=== PATIENT | female | born 1970 | race Caucasian/White ===

== ENCOUNTER 2021-01-01 19:03 | Emergency (ER) | payer OTHER, SELFPAY ==
--- NOTE | ~2021-01-01 | XR_ITS ---
XR chest 2V DATE: 01/01/2021 19:40 INDICATION: Left chest pain radiating to left arm. Numbness, dizziness. Hypertension. TECHNIQUE: PA and lateral views COMPARISON: None FINDINGS: Normal heart size. No hilar or mediastinal enlargement. No pulmonary infiltrate or consolid ation, pleural effusion or pulmonary vascular congestion or pneumothorax. Mild dextro scoliosis of the thoracolumbar spine. IMPRESSION: No active cardiopulmonary disease Reviewed, dictated and finalized at location A.
--- NOTE | 2021-01-01 19:06 | ECG_ITS ---
Measurements Intervals [place] Rate: 95 P: 30 FL: 150 QRS: 43 QRSD: 98 T: 47 QT: 329 QTc: 414 Interpretive Statements SINUS RHYTHM NONSPECIFIC ST & T-WAVE ABNORMALITY- INFERIOR LEADS BASELINE ARTIFACT- I, III BORDERLINE ECG Electronically Signed On 01-01-2021 19:52:36 CDT by Irvin Mackey D.O.
[2021-01-01 19:19] VITALS: BP 181/111; PULSE 88; RESP 18; TEMP 36.1; O2SAT 100
[2021-01-01 19:35] LABS: Basophils Percent Auto 0.4 % (0.2-1.2); Eosinophils Percent Auto 0.5 % (0-4.4); Hematocrit 42.1 % (37.0-47.0); Hemoglobin 13.9 g/dL (12.0-15.0); Immature Granulocyte Absolute 0.01 K/mm3 (0.00-0.031); Immature Granulocyte Percent A 0.2 % (0-0.5); Lymphocytes Absolute Auto 2.41 K/mm3 (0.9-3.2); Lymphocytes Percent Auto 42.3 % (18.3-44.2); Mean Corpuscular Hemoglobin 33.6 pg (26-34); Mean Corpuscular Volume 101.7 fl (80-100); Mean Platelet Volume 9.4 fl (7.4-10.4); Monocytes Absolute Auto 0.5 K/mm3 (0.1-0.6); Monocytes Percent Auto 8.4 % (2.6-8.5); Neutrophils Absolute Auto 2.8 K/mm3 (1.3-6.7); Neutrophils Percent Auto 48.2 % (45.5-73.1); Platelet Count Result 325 k/mm3 (150-375); Red Blood Count 4.14 M/mm3 (4.2-5.4); Red Cell Distribution Width 12.1 % (11.5-14.5); White Blood Count 5.7 K/mm3 (4.5-10.0)
[2021-01-01 19:48] LABS: Anion Gap 11 mmol/L (8-16); Blood Urea Nitrogen 5 mg/dL (7-17); Calcium 9.9 mg/dL (8.4-10.2); Carbon Dioxide 25 mmol/L (22-30); Chloride 105 mmol/L (98-107); Estimated CRCL calculation 78 ml/min; Estimated Glomerular Filt Rate > 60; Glucose 104 mg/dL (65-110); Potassium 3.3 mmol/L (3.4-5.0); Sodium 141 mmol/L (137-145)
[2021-01-01 19:52] LABS: INR 0.8; Partial Thromboplastin Time 25.3 SECONDS (22.3-36.8); Prothrombin Time 11.3 Seconds (11.1-14.7)
[2021-01-01 20:00] LABS: Troponin I < 0.012 ng/mL (0.000-0.034)
[2021-01-01 21:17] VITALS: PULSE 83
[2021-01-01 21:20] VITALS: BP 157/101; PULSE 95; RESP 18; O2SAT 100
[2021-01-01] MEDS: ASPIRIN 81 MG CHEWABLE TABLET 324 MG PO (21:29)
--- NOTE | 2021-01-01 21:32 | ED.CHESTPAIN ---
HPI - Chest Pain General Chief Complaint: Chest Pain Stated Complaint: CP arm numbness,palpitations Time Seen by Provider: 01/01/21 21:31 Source: patient Mode of arrival: ambulatory Limitations: no limitations History of Present Illness HPI narrative: Patient is a 50-year-old female with a history of borderline hypertension, gastric bypass, who presents for evaluation of intermittent chest pain, left arm pain. At the time of assessment, patient is completely asymptomatic. She states that she has had pain over the past month which has been intermittent in nature. Patient reports pain that radiates down both sides of her neck into her left shoulder, and left chest. Moving her neck to the right does exacerbate the pain in her left shoulder. Patient reports at times the pain is worse with movement or heavy lifting. She denies any inciting injury. She denies fever, chills, current chest pain or shortness of breath. No palpitations. No weakness or numbness in the left upper extremity. Patient has no vision changes or severe headache. No difficulty with ambulation. Patient states that symptoms seem to come and go and she currently does not have any pain. She states that she is worried she was having a stroke because a sister recently had a stroke. Patient does not smoke. No recent long car or air travel. No history of Covid. She has had her first Covid vaccination. She denies leg swelling or calf pain. No recent immobility. No history of coagulopathy. Patient does have a history of anxiety, states that she was also concerned she was having a major heart attack. She states her anxiety does play a role in her symptoms and how she is feeling. Patient has a family history of coronary artery disease. No family history of sudden cardiac in any family members. Patient has never had a stress test. She does not have a diagnosis of hypertension. No diagnosis of hyperlipidemia. Related Data Allergies Allergy/AdvReac Type Severity Reaction Status Date / Time No Known Allergies Allergy Unverified 01/01/21 21:13 Review of Systems Review of Systems: CONSTITUTIONAL: Denies fever, chills, or sweats. EYES: Denies visual changes, redness, or discharge. ENT: Denies rhinorrhea, congestion, sore throat, or otalgia. CARDIOVASCULAR: Denies current chest pain, palpitations, or edema. RESPIRATORY: Denies cough or dyspnea. GASTROINTESTINAL: Denies abdominal pain, nausea, vomiting, or diarrhea. GENITOURINARY: Denies dysuria or hematuria. SKIN: Denies rash or itching. MUSCULOSKELETAL: Denies back pain, joint pain, or myalgia. Reports intermittent neck pain. NEUROLOGIC: Denies headache, numbness, or weakness. PSYCHIATRIC: Reports history of anxiety [facility] Social History Social History (Updated 01/01/21 @ 22:57 by Debby Murphy MD) Smoking status: Never smoker Alcohol intake: current Alcohol use details: rare Substance use: never Gender identity (if verbalized by the patient): Female Exam Narrative: GENERAL: Awake, alert, conversant HEAD: Normocephalic, atraumatic. EYES: PERRLA and EOMI. ENT: Nares clear, no rhinorrhea or epistaxis. Mucous membranes moist. NECK: Supple. Mild pain to palpation bilateral trapezius muscles which exactly reproduces pain. No midline cervical pain. No step-offs or deformities. CHEST: No respiratory distress, breathing even and non labored, no chest wall tenderness. HEART: Regular rate, sinus rhythm ABDOMEN:Non distended, non tender EXTREMITIES: Normal range of motion. No edema. Intact sensation over the left deltoid. Full range of motion at the left shoulder without reproduction of pain. SKIN: Warm, dry, no rash. NEURO:No focal deficits. Alert and oriented x3. Finger to nose intact bilaterally. EOMs intact without nystagmus. No facial droop/asymmetry noted bilaterally. Grimace intact. Intact sensation in face. Hearing intact bilaterally. Shoulder shrug intact. Strength 5/5 bilateral upper extremitie
[2021-01-01 22:12] VITALS: BP 152/99; PULSE 84; RESP 16; O2SAT 99
[2021-01-01 23:09] VITALS: BP 137/100; PULSE 85; RESP 20; O2SAT 100
[2021-01-02 00:01] LABS: Troponin I < 0.012 ng/mL (0.000-0.034)
== END 2021-01-01 23:12 | disposition home or self-care (01) ==
PROVIDERS: Emergency Medicine; Emergency Provider Emergency Medicine
DX: R07.89 Other chest pain (principal); M54.2 Cervicalgia; F41.9 Anxiety disorder, unspecified; Z98.84 Bariatric surgery status
CPT/HCPCS: 36415; 71046; 80048; 84484; 85025; 85610; 85730; 93005; 99284; A9270

== ENCOUNTER 2022-01-26 14:16 | Emergency (ER) | payer OTHER, SELFPAY ==
[2022-01-26] VITALS (16 sets, daily range): BP systolic 140–147; BP diastolic 97–99; PULSE 85–102; RESP 10–22; TEMP 36.6; O2SAT 99–100
--- NOTE | ~2022-01-26 | CT_ITS ---
EXAMINATION: CT brain wo con DATE: 01/26/2022 15:06 INDICATION: left side weakness . TECHNIQUE: Computed tomography (CT) of the head was performed without intravenous contrast. The mA wa s adjusted according to patient size. Iterative reconstruction technique was employed. The dose-lengt h product was 605.33 mGy-cm. COMPARISON: None FINDINGS: No acute intracranial hemorrhage or extra-axial fluid collection. No hydrocephalus, mass, or herniation. No acute ischemic infarct. Unremarkable dural venous sinus attenuation. No acute osseous abnormality. The aerated spaces are clear. IMPRESSION: No acute intracranial process. Reviewed, dictated and finalized at location K.
--- NOTE | ~2022-01-26 | XR_ITS ---
EXAMINATION: XR chest 2V Exam Date/Time: 01/26/2022 14:50 CDT HISTORY: chest pain, heart palpitations, left side weakness Comparison: 01/01/2021. RESULT: Lines, tubes, and devices: None. Lungs and pleura: Clear. Cardiomediastinal silhouette: Stable. Other: No acute osseous or upper abdominal finding. IMPRESSION: No acute cardiopulmonary process. Reviewed, dictated and finalized at location K.
--- NOTE | ~2022-01-26 | XR_ITS ---
EXAM: XR elbow LT min 3V DATE: 01/26/2022 16:12 HISTORY: GENERALIZED PAIN THROUGHOUT ARM W/ TROUBLE MOVING, NO INJURY . COMPARISON: None available. FINDINGS: Normal mineralization. No fracture or dislocation. No lytic or blastic lesion. Joint space s are maintained. No erosion or periosteal change. Soft tissues within normal limits. IMPRESSION: No acute osseous finding in the left elbow. Reviewed, dictated and finalized at location K.
--- NOTE | 2022-01-26 14:25 | ECG_ITS ---
Measurements Intervals [employer] Rate: 100 P: 31 WI: 149 QRS: 47 QRSD: 91 T: 38 QT: 319 QTc: 411 Interpretive Statements SINUS TACHYCARDIA MINIMAL NONSPECIFIC T-WAVE ABNORMALITY ABNORMAL RHYTHM ECG COMPARED TO ECG 01/01/2021 19:12:40 SINUS TACHYCARDIA NOW PRESENT T-WAVE ABNORMALITY NOW PRESENT Electronically Signed On 01-28-2022 12:47:44 CDT by Rosetta Ramirez M.D.
[2022-01-26 14:39] LABS: Basophils Percent Auto 0.4 % (0.2-1.2); Eosinophils Percent Auto 0.3 % (0-4.4); Hematocrit 44.2 % (37.0-47.0); Hemoglobin 14.7 g/dL (12.0-15.0); Immature Granulocyte Absolute 0.01 K/mm3 (0.00-0.031); Immature Granulocyte Percent A 0.1 % (0-0.5); Lymphocytes Absolute Auto 1.74 K/mm3 (0.9-3.2); Mean Corpuscular HGB Conc 33.3 g/dl (32-36); Mean Corpuscular Hemoglobin 33.6 pg (26-34); Mean Corpuscular Volume 101.1 fl (80-100); Mean Platelet Volume 9.5 fl (7.4-10.4); Monocytes Absolute Auto 0.4 K/mm3 (0.1-0.6); Monocytes Percent Auto 5.8 % (2.6-8.5); Neutrophils Absolute Auto 4.5 K/mm3 (1.3-6.7); Neutrophils Percent Auto 67.4 % (45.5-73.1); Platelet Count Result 347 k/mm3 (150-375); Red Blood Count 4.37 M/mm3 (4.2-5.4); Red Cell Distribution Width 12.1 % (11.5-14.5); White Blood Count 6.7 K/mm3 (4.5-10.0)
--- NOTE | 2022-01-26 14:45 | ED.GENADULT ---
HPI - General Adult General Chief complaint: Chest Pain Stated complaint: Palpitations Time Seen by Provider: 01/26/22 14:28 Source: patient and RN notes reviewed Mode of arrival: ambulatory Limitations: no limitations History of Present Illness HPI narrative: This is a 51 year old female who presents for evaluation of multiple complaints. She states she has felt off for at least 1 week. She feels like she is having palpitations in her left chest and left elbow. She also reports pins and needles in both feet and both hands for 1 week. She feels like something is wrong with left side of body . She reports weakness and she feels like she is going to fall. She also reports dizziness. She told triage that she was having chest pain and back pain. She denies chest pain to me but she reports feeling of heart racing to left chest. Her states patient drinks heavily and he thinks this may be related to her problems. PAtient told me she only drank 1 glass of wine per night. Her states she drinks vodka and drinks more than what she is stating. He also state this is patient's second visit with similar symptoms. Related Data Allergies Allergy/AdvReac Type Severity Reaction Status Date / Time No Known Allergies Allergy Verified 01/26/22 14:32 Review of Systems Review of Systems: All systems reviewed & are unremarkable except as noted in HPI and below Constitutional: Constitutional: Denies chills, Reports fatigue and Denies fever(s) ENT: Reports dizziness, Denies nasal congestion and Denies sore throat Cardiovascular: Cardiovascular: Denies chest pain, Reports rapid heart rate and Denies radiating jaw, neck or arm pain Respiratory: Respiratory: Denies chest congestion, Denies cough and Denies dyspnea Gastrointestinal: Gastrointestinal: Denies abdominal pain, Reports nausea and Denies vomiting Neurologic: Reports dizziness, Reports numbness (in her feet) and Reports weakness PMFSH Social History Social History (Updated 01/26/22 @ 14:51 by Mari Gregorio MD) Smoking status: Never smoker Alcohol intake: current Alcohol use details: drinks daily Substance use: never Gender identity (if verbalized by the patient): Female Exam Narrative: GENERAL: Well-appearing, well-nourished, and in no acute distress. HEAD: Normocephalic, atraumatic EYES: PERRLA and EOMI, conjunctiva clear without discharge EARS: TM's clear bilaterally without erythema or dullness NOSE: Nares clear, no rhinorrhea or epistaxis THROAT:Mucous membranes moist, Oropharynx normal without erythema, exudate, peritonsillar swelling or fluctuance NECK: Supple, without lymphadenopathy or mass RESPIRATORY: No respiratory distress, Airway patent, Respirations non-labored, Clear to auscultation without rales, rhonchi or wheeze HEART: Regular rate and rhythm. No murmur heard. Normal peripheral pulses. ABDOMEN: Soft, nontender, nondistended, normal active bowel sounds. No masses. No rebound or guarding, No organomegaly. EXTREMITIES: No edema, normal strength with full range of motion. SKIN: Warm, dry, normal color without rash NEURO: Alert and oriented x3. CN 2-12 grossly intact. No focal deficits. PSYCH: Normal mood and affect. Neuro: General: patient oriented x3, moves all extremities, no focal motor deficits and CN's II-XI intact bilaterally Cranial nerves: Yes CN's II-XII intact bilaterally and Yes Nystagmus not present Speech: normal speech Motor exam (neuro): 5/5 motor strength present throughout Sensory Exam: normal sensation Coordination: [id number] test normal and [id number]-[id number] test normal Extrem: General: normal to inspection, no clubbing, cyanosis or edema and no pedal edema Psych: Mental Status: mental status grossly normal Course Reevaluation(s) Reevaluation #1: I discussed with patient labs are unremarkable. She was evaluated for similar symptoms 1 year ago. This symptoms may be related to anxiety an
[2022-01-26 14:50] LABS: Prothrombin Time 12.5 Seconds (11.1-14.7)
[2022-01-26 14:51] LABS: Partial Thromboplastin Time 27.2 SECONDS (22.3-36.8)
[2022-01-26 15:07] LABS: Alanine Aminotransferase 16 U/L (6-35); Alkaline Phosphatase 42 U/L (38-126); Anion Gap 10 mmol/L (8-16); Aspartate Amino Transferase 21 U/L (14-36); Bilirubin,Total 0.3 mg/dL (0.2-1.3); Blood Urea Nitrogen 6 mg/dL (7-17); Calcium 9.7 mg/dL (8.4-10.2); Carbon Dioxide 28 mmol/L (22-30); Chloride 102 mmol/L (98-107); Estimated CRCL calculation 101 ml/min; Estimated Glomerular Filt Rate > 60; Glucose 143 mg/dL (65-110); Lipase 88 U/L (23-300); Potassium 3.8 mmol/L (3.4-5.0); Sodium 140 mmol/L (137-145)
[2022-01-26] MEDS: LORazepam (*CRX) 1 MG TABLET PO (15:13)
[2022-01-26] MEDS: LACTATED RINGERS 1,000 ML 999 ML IV CONT (15:13)
[2022-01-26 15:18] LABS: Troponin I < 0.012 ng/mL (0.000-0.034)
[2022-01-26 16:14] LABS: Ammonia < 9 umol/L (9-30); Magnesium 2.3 mg/dL (1.6-2.3)
[2022-01-26 16:15] LABS: Ethanol < 10 mg/dL (<10)
== END 2022-01-26 17:48 | disposition home or self-care (01) ==
PROVIDERS: Emergency Medicine; Emergency Provider General Practice
DX: R00.2 Palpitations (principal); R20.2 Paresthesia of skin
CPT/HCPCS: 36415; 70450; 71046; 73080; 80053; 80307; 82140; 82607; 82746; 83690; 83735; 84443; 84484; 85025; 85380; 85610; 85730; 93005; 96360; 99284; A9270; J7120

== ENCOUNTER 2022-04-25 14:43 | Outpatient (CLI) | payer BC, SELFPAY ==
--- NOTE | ~2022-04-25 | MM_ITS ---
EXAMINATION: MM scrn nadeem implant BI w any HISTORY: Screening mammogram TECHNIQUE: Craniocaudal and mediolateral oblique 3-D tomosynthesis images with implant displacement a nd synthetic 2-D images were generated. Craniocaudal and mediolateral oblique views of the breasts wi thout implant displacement were obtained using full field digital mammography. CAD analysis was submi tted and interpreted. COMPARISON: No prior mammogram is available for comparison at this institution. BREAST PARENCHYMAL COMPOSITION: There are scattered areas of fibroglandular density. FINDINGS: There is no evidence of suspicious mass, calcification, or architectural distortion to sugg est malignancy in either breast. IMPRESSION: 1. No mammographic evidence of malignancy. 2. Recommend routine screening mammography in one year. BI-RADS Category 1: Negative Reviewed, dictated and finalized at location A. [employer]
== END 2022-04-25 14:44 | disposition home or self-care (01) ==
LOC: ANHIMG 14:54
PROVIDERS: PCP Family Medicine; Visit Provider Physician Assistant Medical
DX: Z12.31 Encounter for screening mammogram for malignant neoplasm of breast (principal)
CPT/HCPCS: 77063; 77067

== ENCOUNTER 2022-05-08 11:21 | Outpatient (CLI) | payer BC, SELFPAY ==
[2022-05-08 12:09] LABS: Basophils Percent Auto 0.6 % (0.2-1.2); Eosinophils Absolute Auto 0.1 K/mm3 (0-0.3); Eosinophils Percent Auto 2.1 % (0-4.4); Hematocrit 41.5 % (37.0-47.0); Hemoglobin 13.6 g/dL (12.0-15.0); Immature Granulocyte Absolute 0.01 K/mm3 (0.00-0.031); Immature Granulocyte Percent A 0.2 % (0-0.5); Lymphocytes Absolute Auto 1.79 K/mm3 (0.9-3.2); Lymphocytes Percent Auto 37.8 % (18.3-44.2); Mean Corpuscular HGB Conc 32.8 g/dl (32-36); Mean Corpuscular Hemoglobin 31.9 pg (26-34); Mean Corpuscular Volume 97.2 fl (80-100); Mean Platelet Volume 9.5 fl (7.4-10.4); Monocytes Absolute Auto 0.4 K/mm3 (0.1-0.6); Monocytes Percent Auto 8.2 % (2.6-8.5); Neutrophils Absolute Auto 2.4 K/mm3 (1.3-6.7); Neutrophils Percent Auto 51.1 % (45.5-73.1); Platelet Count Result 330 k/mm3 (150-375); Red Blood Count 4.27 M/mm3 (4.2-5.4); Red Cell Distribution Width 12.6 % (11.5-14.5); White Blood Count 4.7 K/mm3 (4.5-10.0)
== END 2022-05-08 11:22 | disposition home or self-care (01) ==
PROVIDERS: PCP Family Medicine; Visit Provider Obstetrics & Gynecology
DX: D21.9 Benign neoplasm of connective and other soft tissue, unspecified (principal)
CPT/HCPCS: 36415; 85025; 86850; 86900; 86901

== ENCOUNTER 2022-05-09 01:16 | Day surgery (SDC) | payer BC, SELFPAY ==
[2022-05-05 14:37] VITALS: BMI 27.4
--- NOTE | 2022-05-05 14:42 | PC.NURSE ---
Report to the Outpatient Waiting Room, entrance under the green pavilion located off [facility], at time 9:30 on date 05/09/22. Planned Procedure Time: 11:30. Time changes happen often and if your time is changed the preop area will call you the afternoon before. - You and your visitor will be asked to self-screen and do not enter if you have any COVID symptoms. - Only one visitor is requested with a max of two and NO children visitors are allowed at this time. - The patient visitor may be requested to leave or wait in car when not with patient due to distancing restrictions. - A mask is optional within the hospital. Patients may have clear liquids (water, carbonated beverages, clear teas, apple juice) until 3 hours prior to surgery with a maximum of 20 ounces. - No food from midnight until time of surgery Take the following medications with a SIP of water the morning of surgery: ZOLOFT, XANAX & TYLENOL IF NEEDED Medications to discontinue per physician: N/A Date to take last dose: N/A Please no make-up, nail tuvaluan, hairspray, perfume, deodorant, or body powder the day of surgery. No jewelry (including any body piercings) or valuables the day of surgery, leave them at home. Please take a shower or bath the night before, or the morning of, surgery with an antibacterial soap. Wear comfortable, loose fitting clothing. - Jewelry must be removed prior to entering the operating room. Rings and piercings that are not removed may be cut off. - The hospital will not accept responsibility for valuables. - Please leave all valuables, including medications, at home the day of surgery. If you are going home after surgery, a licensed dedicated driver must drive you home. - NO public transportation without another adult if you receive anesthesia. - We recommend that an adult stay with you for 24 hours following discharge. - We also recommend that you do not drive, make important decision, drink alcoholic beverages, or take any drugs that were not prescribed by your health care provider for at least 24 hours after your discharge time. Follow any additional instructions given to you from your surgeon. If you or anyone in your household have experienced Covid symptoms in the past week, please notify your surgeon or the nurse liaison at the phone number below for possible testing. Telephone instructions given to PT - ZACHERY CUEVAS and asked if any additional questions and then verbalized understanding. Patient advised to call surgeon office or pre surgery nurse liaison [phone] if any additional questions.
--- NOTE | 2022-05-07 06:36 | PM.IMHP ---
H&P: HPI History of Present Illness Date/Time: 05/07/22 06:36 Chief Complaint: failed uterine ablation with pain and fibroids and irregular bleeding Narrative: this is a 52-year-old female with known uterine fibroids and severe pelvic pain on the right. She will undergo robotic total vaginal hysterectomy with right salpingo-oophorectomy and left salpingectomy. Risks and benefits reviewed including not exclusive of , aspiration pneumonia bleeding, transfusion perforation injury to bowel, bladder, ureters, other internal organs with need for open laparotomy. She received the ACOG handout entitled hysterectomy as well as the [facility] handout. She had all questions answered and asked to proceed PMFSH Past Medical History Medical History BMI 27.0-27.9,adult Irritable bowel Surgical History Surgical History H/O abdominoplasty H/O gastric bypass Family History Family History Other Cerebrovascular accident Depression Heart disease Hypertension Social History Social History Smoking status: Never smoker Alcohol intake: current Alcohol use details: 4/MONTH Substance use: never Substance use type: does not use Lack of Transportation: No Lack of Food: Never True Current Housing: I Have Housing Concerned About Future Housing: No Difficulty Paying Gas/Electric Bills: No Difficulty Paying for Meds: No Currently Unemployed: No Education: High School Diploma/GED Gender identity (if verbalized by the patient): Female Spiritual care concerns: No Meds Home Medications and Allergies Home Medications Medication Instructions Recorded Confirmed Type acetaminophen 500 mg capsule 500 mg PO Q6H PRN fever or pain 01/01/21 05/05/22 Rx #30 caps ibuprofen 400 mg tablet 400 mg PO TID PRN fever or pain 10 01/01/21 05/05/22 Rx days #30 tabs alprazolam 0.25 mg tablet (Xanax) 0.25 mg PO BID PRN anxiety #10 tabs 04/23/22 05/05/22 Rx fluticasone propionate 50 1 spray intranasal DAILY #18.2 mL 04/23/22 05/05/22 Rx mcg/actuation nasal spray,suspension (Flonase Allergy Relief) loratadine-pseudoephedrine ER 10 1 tablet PO .QD 04/23/22 05/05/22 History mg-240 mg tablet,extended [id number] (Claritin-D 24 Hour) sertraline 25 mg tablet (Zoloft) 25 mg PO DAILY #30 tabs 04/23/22 05/05/22 Rx Allergies Allergy/AdvReac Type Severity Reaction Status Date / Time No Known Allergies Allergy Verified 05/05/22 14:36 Exam Const: General: cooperative, healthy appearing and comfortable Nutritional Appearance: average body habitus Orientation/consciousness: oriented to person, oriented to place and oriented to time HENMT: Head: normal to inspection Neck: Neck: normal visual inspection Resp: Effort & Inspection: normal respiratory effort Cardio: Rate: regular rate Rhythm: regular rhythm Heart sounds: S1 normal heart sound present and S2 normal heart sound present GI: Inspection: normal to inspection Auscultation: normal bowel sounds : Speculum Exam - Vagina: normal appearance of the vagina Speculum Exam - Cervix: normal appearance of the cervix Bimanual exam- vagina & uterus: enlarged Bimanual Exam- Adnexa, other: normal adnexae Assessment and Plan Assessment and plan (1) Fibroids: Code(s): D21.9 - Benign neoplasm of connective and other soft tissue, unspecified Status: Acute (2) Pelvic pain: Code(s): R10.2 - Pelvic and perineal pain Status: Acute (3) Bleeding: Code(s): R58 - Hemorrhage, not elsewhere classified Status: Acute Plan robotic total vaginal hysterectomy and an right salpingo-oophorectomy with left salpingectomy
[2022-05-09] VITALS (10 sets, daily range): BP systolic 115–139; BP diastolic 70–92; PULSE 55–92; RESP 10–20; TEMP 36.1–36.8; O2SAT 95–100
--- NOTE | 2022-05-09 07:05 | WPDHPUPDATE1 ---
History and Physical Update Update Date/Time: 05/09/22 07:05 History and Physical has been reviewed, including an updated exam of the patient. There are NO changes in the patient's condition. Risks, benefits, and alternatives have been discussed and questions answered. Patient agrees to proceed with procedure.
[2022-05-09] MEDS: LACTATED RINGERS 1,000 ML 30 ML IV CONT ×2 (08:35→11:08)
--- NOTE | 2022-05-09 08:35 | WPDANESEPPF ---
Anes - Initial Pre Proc Eval Procedure: Operation Date: 05/09/22 09:30 Proposed Procedures p Robotic Assisted Total Vaginal Hysterectomy, Right Salpingo-oophorectomy, Left Salpingectomy - Mike Ha MD Date/Time: 05/09/22 08:35 Surgeon: Mike Ha MD Pre Op Diagnosis: Fail Uterine Abla,Pain,Fibroids,Enl Uterus,Bleedin Patient Data Age: 52 Gender: F Height: 1.68 m Weight: 75.3 kg Last Vital Signs Temp 36.4 C L 05/09/22 08:05 Pulse 92 05/09/22 08:05 Resp 20 05/09/22 08:05 BP 126/92 H 05/09/22 08:05 Pulse Ox 100 05/09/22 08:05 O2 Del Method Room Air 05/09/22 08:05 Allergies Allergy/AdvReac Type Severity Reaction Status Date / Time No Known Allergies Allergy Verified 05/09/22 08:03 Home Medications Medication Instructions Recorded Confirmed Type ibuprofen 400 mg tablet 400 mg PO TID PRN fever or pain 10 01/01/21 05/09/22 Rx days #30 tabs alprazolam 0.25 mg tablet (Xanax) 0.25 mg PO BID PRN anxiety #10 tabs 04/23/22 05/09/22 Rx fluticasone propionate 50 1 spray intranasal DAILY #18.2 mL 04/23/22 05/09/22 Rx mcg/actuation nasal spray,suspension (Flonase Allergy Relief) loratadine-pseudoephedrine ER 10 1 tablet PO .QD 04/23/22 05/09/22 History mg-240 mg tablet,extended [id number] (Claritin-D 24 Hour) sertraline 25 mg tablet (Zoloft) 25 mg PO DAILY #30 tabs 04/23/22 05/09/22 Rx acetaminophen 500 mg capsule 1,000 mg PO Q6H PRN fever or pain 05/09/22 05/09/22 History hydrocodone 5 mg-acetaminophen 325 1 tablet PO Q4H PRN pain #30 tabs 05/09/22 Rx mg tablet Patient hx anesthesia problems: none Family hx anesthesia problems: none Results Review: All pre-operative results and documents have been reviewed as part of the pre-operative evaluation. [facility] Past Medical History Medical History BMI 27.0-27.9,adult Irritable bowel Surgical History Surgical History H/O abdominoplasty H/O gastric bypass Family History Family History Other Cerebrovascular accident Depression Heart disease Hypertension Social History Social History Smoking status: Never smoker Alcohol intake: current Alcohol use details: 4/MONTH Substance use: never Substance use type: does not use Lack of Transportation: No Lack of Food: Never True Current Housing: I Have Housing Concerned About Future Housing: No Difficulty Paying Gas/Electric Bills: No Difficulty Paying for Meds: No Currently Unemployed: No Education: High School Diploma/GED Living arrangements: with family Gender identity (if verbalized by the patient): Female Spiritual care concerns: No Anes - Eval Final PreProcedure Day of Procedure 05/09/22 08:35 Patient weight: overweight Heart: regular rate and rhythm Lungs: clear to auscultation Airway: Mallampati scale class II Neurological: alert and oriented Last oral intake: >/= 8 hours ASA classification: II Emergent: no Anesthetic plan: proceed Anesthesia type and monitoring: general ETT and standard monitoring Results Review: All pre-operative results and documents have been reviewed as part of the pre-operative evaluation. Informed Consent: The patient's anesthetic plan and its attendant risks and benefits were discussed with the patient/family/POA. Questions were solicited and answers provided to the satisfaction of the patient/family/POA.
[2022-05-09] MEDS: KETOROLAC 15 MG/ML VIAL (*BKC) IV PUSH (08:38)
[2022-05-09] MEDS: ceFAZolin 2 GM/D5W 50 ML 2 GM/50 ML BAG IVPB (09:32)
--- NOTE | 2022-05-09 10:56 | P.OP_ITS ---
Procedure Note - Detailed Date of Procedure 05/09/22 Pre-op Diagnosis Fail Uterine Abla,Pain,Fibroids,Enl Uterus,Bleedin Post-op Diagnosis Same Procedure Performed Robotic total vaginal hysterectomy with right salpingo-oophorectomy and left salpingectomy Surgeon Mike Ha MD Anesthesia General Indications this is a the a 52-year-old female with a markedly enlarged fibroid uterus and chronic right-sided pelvic pain Findings [id number] fibroid uterus. Normal-appearing left ovary and tube. Right ovarian cyst Description of Procedure patient was prepped draped in the normal sterile fashion placed in dorsal lithotomy position. Under excellent general trach anesthesia weighted speculum placed in posterior fornix vagina. Anterior lip of the cervix grasped with a tenaculum and the uterus sounded to 8cm. There is a large fibroid in the uterine cervix. The 3.5 IBRAHIAM was placed and the remainder the instruments removed. A 16 [place] catheter was placed in the bladder and the bladder drained of clear urine. A supraumbilical incision made the Veress needle passed in the abdomen. Abdomen filled with CO2 gas to 15mm Hg. The 8mm trocar advanced abdomen the downside visualized no injury seen. Patient placed in Trendelenburg and right left lateral quadrant incision made 8mm trocars advanced under direct visualization assuring no injury. Right upper quadrant incision made the 8mm trocar advanced under direct visualization assuring no injury. The robot was docked. Attention was turned to the nurses' association counselor. the left round ligament was grasped, burned, cut. Anteriorly a bladder flap was formed by sharply dissected peritoneum and reflecting the bladder caudally away from the to the opposite round ligament which was clamped, burned, cut. The left fallopian tube was then skeletonized clamped burned and cut and left attached to the uterus. The left utero-ovarian ligament was skeletonized clamping burning cutting and bringing this the level of the previously cut round ligament. The left ovary and tube removed by clamping burning and cutting the infundibulopelvic structure on the right clamping burning cutting and bringing this the level of previously cut round ligament. Next the cardinal broad ligaments on the left were serially skeletonized clamped burned and cut and brought down lateral edge to the uterine vessels on the left which were clamped, burned, cut. In like fashion the cardinal broad ligaments on the right were serially skeletonized clamping burning cutting and bringing this down the lateral edge of the uterus until the uterine vessels could be seen on right. These were individually clamped, burned, cut. Blanching the uterus was noted a colpotomy incision was made in the cervix uterus tubes and right ovary removed through the vagina. The vagina was then closed with continuous running 0 but V lock from lateral edge to lateral edge back to the midline. Irrigation undertaken to clear. Hemostasis was assured. The robot was undocked and gas removed from the abdomen. The trocars removed the incisions closed with 4 Monocryl and glue. Patient went recovery in satisfactory condition. All sponge, needle, instrument counts were correct. There were no immediate complications Estimated Blood Loss 25 Drains No Packing No Pathology Yes Complications No immediate complications Condition Stable Disposition PACU
[2022-05-09] MEDS: fentaNYL CITRATE INJ (*CRX) 100 MCG/2 ML VIAL 25 MCG IV PUSH ×6 (11:29→12:32)
--- NOTE | 2022-05-09 12:44 | PC.NURSE ---
This patient, Jaclyn Tovar, was received from PACU on 05/09/22 at 1244. Patient/family oriented to unit policies and routines
[2022-05-09] MEDS: KETOROLAC 30 MG/ML VIAL (*BKC) IV PUSH ×2 (13:10→20:01)
[2022-05-09] MEDS: DEXTROSE 5%/LACTATED RINGERS 1,000 ML 125 ML IV CONT (13:10)
[2022-05-09] MEDS: SIMETHICONE 80 MG TAB.CHEW PO ×2 (13:59→17:11)
[2022-05-09] MEDS: HYDROcodone/acetaminophen (*CRX) 10-325 MG TABLET 1 TAB PO ×2 (14:00→17:10)
[2022-05-09] MEDS: DOCUSATE SODIUM 100 MG CAPSULE PO (17:11)
--- NOTE | 2022-05-09 17:58 | PC.NURSE ---
Epifanio Wilkins RN, has checked over and agrees with the charting that Ana Valadez, Student RN, has completed.
[2022-05-09] MEDS: ONDANSETRON INJ 4 MG/2 ML VIAL IV PUSH (20:01)
[2022-05-09] MEDS: HYDROcodone/acetaminophen (*CRX) 5-325 MG TABLET 1 TAB PO (21:45)
[2022-05-10 03:44] VITALS: BP 143/83; PULSE 98; RESP 18; TEMP 36.6; O2SAT 98
[2022-05-10] MEDS: IBUPROFEN 600 MG TABLET PO ×2 (03:44→09:38)
[2022-05-10] MEDS: HYDROcodone/acetaminophen (*CRX) 5-325 MG TABLET 1 TAB PO ×2 (03:44→09:38)
[2022-05-10 05:24] LABS: Basophils Percent Auto 0.3 % (0.2-1.2); Eosinophils Percent Auto 0.2 % (0-4.4); Hematocrit 33.7 % (37.0-47.0); Hemoglobin 11.2 g/dL (12.0-15.0); Immature Granulocyte Absolute 0.03 K/mm3 (0.00-0.031); Immature Granulocyte Percent A 0.3 % (0-0.5); Lymphocytes Absolute Auto 1.96 K/mm3 (0.9-3.2); Lymphocytes Percent Auto 19.8 % (18.3-44.2); Mean Corpuscular HGB Conc 33.2 g/dl (32-36); Mean Corpuscular Hemoglobin 31.7 pg (26-34); Mean Corpuscular Volume 95.5 fl (80-100); Monocytes Absolute Auto 0.8 K/mm3 (0.1-0.6); Monocytes Percent Auto 8.1 % (2.6-8.5); Neutrophils Absolute Auto 7.1 K/mm3 (1.3-6.7); Neutrophils Percent Auto 71.3 % (45.5-73.1); Platelet Count Result 275 k/mm3 (150-375); Red Blood Count 3.53 M/mm3 (4.2-5.4); Red Cell Distribution Width 12.5 % (11.5-14.5); White Blood Count 9.9 K/mm3 (4.5-10.0)
[2022-05-10 08:00] VITALS: BP 115/79; PULSE 88; RESP 16; TEMP 36.9; O2SAT 96
[2022-05-10] MEDS: DOCUSATE SODIUM 100 MG CAPSULE PO (08:18)
[2022-05-10] MEDS: ENOXAPARIN 40 MG/0.4 ML SYRINGE SUB-Q (08:18)
--- NOTE | 2022-05-10 08:55 | WPDANESPN ---
Anes - Prog Note Post-Op Date/Time: 05/10/22 08:55 Cardiovascular status: normal Respiratory status: normal Airway patency: baseline Mental status: baseline Post-Op hydration status: normal Vital Signs: Last Vital Signs Temp 36.9 C 05/10/22 08:00 Pulse 88 05/10/22 08:00 Resp 16 05/10/22 08:00 BP 115/79 05/10/22 08:00 Pulse Ox 96 05/10/22 08:00 O2 Del Method Room Air 05/09/22 12:46 O2 Flow Rate 10 05/09/22 11:35 Pain Score (VAS): 3 I/O: Intake & Output 05/09/22 05/10/22 05/10/22 23:59 07:59 15:59 Intake Total 1400 750 500 Output Total 375 1150 180 Balance 1025 -400 320 Laboratory Tests 05/10/22 03:53 05/10/22 03:53 WBC 9.9 RBC 3.53 L Hgb 11.2 L Hct 33.7 L MCV 95.5 MCH 31.7 MCHC 33.2 RDW 12.5 Plt Count 275 MPV 10.0 Immature Gran % (Auto) 0.3 Neut % (Auto) 71.3 Lymph % (Auto) 19.8 [place] % (Auto) 8.1 Eos % (Auto) 0.2 Baso % (Auto) 0.3 Lymph # (Auto) 1.96 [place] # (Auto) 0.8 H Eos # (Auto) 0.0 Baso # (Auto) 0.0 Abs Immat Gran (auto) 0.03 Absolute Neuts (auto) 7.1 H Absolute Nucleated RBC 0.0 Nucleated RBC % 0.0 Post-procedural complaints: none Patient Feedback: Patient satisfied with anesthetic care.
[2022-05-10] MEDS: SIMETHICONE 80 MG TAB.CHEW PO (09:39)
--- NOTE | 2022-05-10 12:33 | PM.GYNPNOP ---
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 Postop urinary retention. P: Home with ponce catheter. Reviewed instructions and precautions. F/u office in 3-4 days for removal. (2) Pelvic pain: Code(s): R10.2 - Pelvic and perineal pain Status: Acute (3) Fibroids: Code(s): D21.9 - Benign neoplasm of connective and other soft tissue, unspecified Status: Acute (4) Postoperative urinary retention: Code(s): N99.89 - Other postprocedural complications and disorders of genitourinary system; R33.8 - Other retention of urine Status: Acute Postoperative Procedures: Procedures Operation Date: 05/09/22 09:30 Actual Procedure Side Surgeon p Robotic Assisted Total Vaginal Hysterectomy, Right Salpingo-oophorectomy, Left Salpingectomy Bilateral Mike Ha MD Postoperative day: 1 Postoperative status: doing well Postoperative plan: routine post-op care Time Spent With Patient Time with patient: less than 15 minutes WOODWORK SALVAGE INSPECTOR- PN:Subj Post-Op Subjective Date/time seen: 05/10/22 12:33 Interval history: Pain OK. Tolerating diet. Unable to void much, and bladder scan shows 800 mL urine residual volume. She has a history of urinary retention requiring her to go home with a ponce catheter after delivering her children. Would like to go home with a catheter. Exam Narrative: AVSS I/O OK ABD soft, nontender. Incisions c/d/i. EXT nontender WOODWORK SALVAGE INSPECTOR - PN: Obj Data Vital Signs Vital Signs: Vital Signs - 24 hr 05/09/22 12:46 05/09/22 12:46 05/09/22 17:09 Temperature 36.2 C L 36.7 C Pulse Rate 69 84 Respiratory Rate 15 15 Blood Pressure 121/73 125/80 Pulse Oximetry 100 99 Oxygen Delivery Room Air 05/09/22 20:00 05/10/22 03:44 05/10/22 08:00 Temperature 36.8 C 36.6 C 36.9 C Pulse Rate 74 98 88 Respiratory Rate 18 18 16 Blood Pressure 125/84 143/83 H 115/79 Pulse Oximetry 97 98 96 Oxygen Delivery Intake/Output Intake/Output: Intake & Output 05/07/22 05/08/22 05/09/22 05/10/22 23:59 23:59 23:59 23:59 Intake Total 1950 1250 Output Total 405 1330 Balance 1545 -80 Meds/Results Medications: Active Medications Generic Name Dose Route Start Last Admin Trade Name Freq PRN Reason Stop Dose Admin Hydrocodone Bitart/Acetaminophen 1 tab 05/09/22 12:54 05/10/22 09:38 Hydrocodone/Acetaminophen (*Crx) 5-325 Mg Tablet PO 1 tab Q3H PRN Administration Pain Rated 5 or Less Hydrocodone Bitart/Acetaminophen 1 tab 05/09/22 12:54 05/09/22 17:10 Hydrocodone/Acetaminophen (*Crx) 10-325 Mg Tablet PO 1 tab Q3H PRN Administration Pain Rated 6 or Greater Docusate Sodium 100 mg 05/09/22 17:00 05/10/22 08:18 Docusate Sodium 100 Mg Capsule PO 100 mg BID MERISSA Administration Enoxaparin Sodium 40 mg 05/10/22 09:00 05/10/22 08:18 Enoxaparin 40 Mg/0.4 Ml Syringe SUB-Q 40 mg DAILY MERISSA Administration Ibuprofen 600 mg 05/09/22 12:54 05/10/22 09:38 Ibuprofen 600 Mg Tablet PO 600 mg Q6H PRN Administration Cramping Ketorolac Tromethamine 30 mg 05/09/22 12:54 05/09/22 20:01 Ketorolac 30 Mg/Ml Vial (*Bkc) IV PUSH 05/14/22 12:53 30 mg Q6H PRN Administration Pain Rated 4-6 Naloxone HCl 0.1 mg 05/09/22 12:54 Naloxone Hcl 0.4 Mg/Ml Vial IV PUSH Q2M PRN Respiratory rate less than 10 Ondansetron HCl 4 mg 05/09/22 12:54 05/09/22 20:01 Ondansetron Inj 4 Mg/2 Ml Vial IV PUSH 4 mg Q6H PRN Administration Nausea And Vomiting Simethicone 80 mg 05/09/22 12:54 05/10/22 09:39 Simethicone 80 Mg Tab.Chew PO 80 mg Q2H PRN Administration Gas Labs 05/10/22 03:53 Labs: Laboratory Results - last 24 hr 05/10/22 03:53 WBC 9.9 RBC 3.53 L Hgb 11.2 L Hct 33.7 L MCV 95.5 MCH 31.7 MCHC 33.2 RDW 12
--- NOTE | 2022-05-10 12:36 | P.DS_ITS ---
DS: Admitting Diagnosis Discharge Date 05/10/22 Admitting Diagnosis Uterine fibroids, vaginal bleeding, pelvic pain DS: Discharge Diagnosis Discharge Diagnosis (1) Postoperative urinary retention: Code(s): N99.89 - Other postprocedural complications and disorders of genitourinary system; R33.8 - Other retention of urine Status: Acute (2) Bleeding: Code(s): R58 - Hemorrhage, not elsewhere classified Status: Acute (3) Pelvic pain: Code(s): R10.2 - Pelvic and perineal pain Status: Acute (4) Fibroids: Code(s): D21.9 - Benign neoplasm of connective and other soft tissue, unspecified Status: Acute DS: Summary Hospital Course Hospital Course: Admitted on the date of scheduled surgery. Please see op note for details. Unable to void well postop and was sent home with a ponce catheter, to f/u off ice in 3-4 days. Time Spent with Patient Time attestation: Total time spent providing and/or coordinating discharge services: DS: Data Data Completed and Pending Pending studies at discharge: Pending at discharge 05/09/22 10:41 Surgical [PTH] Routine Labs on day of discharge: Labs from last 24 hours 05/10/22 03:53 WBC 9.9 RBC 3.53 L Hgb 11.2 L Hct 33.7 L MCV 95.5 MCH 31.7 MCHC 33.2 RDW 12.5 Plt Count 275 MPV 10.0 Immature Gran % (Auto) 0.3 Neut % (Auto) 71.3 Lymph % (Auto) 19.8 [place] % (Auto) 8.1 Eos % (Auto) 0.2 Baso % (Auto) 0.3 Lymph # (Auto) 1.96 [place] # (Auto) 0.8 H Eos # (Auto) 0.0 Baso # (Auto) 0.0 Abs Immat Gran (auto) 0.03 Absolute Neuts (auto) 7.1 H Absolute Nucleated RBC 0.0 Nucleated RBC % 0.0 Discharge Plan Discharge Patient Disposition: Home, Self-Care Discharge Instructions: Nothing in vagina for 6 weeks. Call or return if temperature above 100.4? F, increased abdominal pain, increased vaginal bleeding or any new problems. Stand Alone Forms: General Discharge Instructions Follow-up/Referrals: Mike Merlos MD [Physician] - Call for Appointment Discharge Medications: New hydrocodone-acetaminophen 5-325 mg tablet 1 tablet PO Q4H PRN (Reason: pain) Qty: 30 0RF nitrofurantoin monohyd/m-cryst [Macrobid] 100 mg capsule 100 mg PO DAILY Qty: 7 0RF Rx Instructions: must administer with a meal/food Continued Claritin-D 24 Hour 10-240 mg tablet extended release 24 hr 1 tablet PO .QD sertraline [Zoloft] 25 mg tablet 25 mg PO DAILY Qty: 30 2RF fluticasone propionate [Flonase Allergy Relief] 50 mcg/actuation spray,suspension 1 spray intranasal DAILY Qty: 18.2 0RF Rx Instructions: administer into each nostril alprazolam [Xanax] 0.25 mg tablet 0.25 mg PO BID PRN (Reason: anxiety) Qty: 10 0RF ibuprofen 400 mg tablet 400 mg PO TID PRN (Reason: fever or pain) 10 Days Qty: 30 0RF acetaminophen 500 mg capsule 1,000 mg PO Q6H PRN (Reason: fever or pain)
== END 2022-05-10 14:18 | disposition home or self-care (01) ==
LOC: ANHSURGERY 07:16 → ANHOB2 12:56
PROVIDERS: PCP Family Medicine; Visit Provider Obstetrics & Gynecology
PROC: (CPT 58554; principal; 2022-05-09 09:30)
DX: D25.0 Submucous leiomyoma of uterus (principal); D25.1 Intramural leiomyoma of uterus; D25.2 Subserosal leiomyoma of uterus; N99.89 Other postprocedural complications and disorders of genitourinary system; R33.9 Retention of urine, unspecified; D27.0 Benign neoplasm of right ovary; N72 Inflammatory disease of cervix uteri; N99.85 Post endometrial ablation syndrome; R10.2 Pelvic and perineal pain; N93.9 Abnormal uterine and vaginal bleeding, unspecified
CPT/HCPCS: 58554; S2900; 36415; 85025; 88307; 99199; A9270; J0690; J1100; J1170; J1650; J1885; J2250; J2405; J2704; J2710; J3010; J7030; J7120; J7121